=== PATIENT | female | born 1995 | race African-American/Black ===

== ENCOUNTER → 2017-01-13 | Outpatient (CLI) | payer OTHER ==
--- NOTE | 2017-01-13 13:00 | EKG REPORT ---
SEVERITY:- NORMAL ECG - SINUS RHYTHM : Confirmed by: Pooja Sunshine 13-Jan-2017 12:59:39
--- NOTE | 2017-01-16 14:36 | [facility] ---
[facility] NAME: FLAVIO BORRERO [facility] REFERENCE #: [id number] : 1995 DATE OF VISIT: 01/13/2017 PRIMARY CARE PHYSICIAN: [facility] CHIEF COMPLAINT: Followup bicuspid aortic valve and ascending aorta enlargement. HISTORY: I saw this patient in 06/2014 for lightheadedness and palpitations. On my exam, I found an aortic ejection click and her echo revealed that she did have a bicuspid aortic valve and a large ascending aorta but not severe, and her valve function was essentially normal. She is here to follow up on this. She had a thirty day EKG recorder but actually she stopped having her palpitations, and at this visit she says she really does not have cardiac symptoms. Sometimes if she has a test or a deadline, she will feel tight in the chest or be short of breath but she is sure that is anxiety and she does not have sustained tachycardia or palpitations. Her tolerance is normal. She has rare headaches with stress. MEDICATIONS: None. ALLERGIES: Amoxicillin and Keflex. SOCIAL HISTORY: Is at [facility] in [place]. PAST HOSPITALIZATION: None. SURGERY: None. SYSTEMS REVIEWED: Negative for abnormal weight change, vision problems, or hearing problems, wheezing or coughing, GI symptoms, urinary complaints, musculoskeletal problems. She has normal menses. FAMILY HISTORY: Mother has thyroid dysfunction, and one time had anemia. There are no individuals known with aortic valve problems. PHYSICAL EXAM: Weight 156 pounds, height 64 inches. Blood pressure 110/62, heart rate 73. General exam: This is a polite, well-appearing young woman. I examined her with her mother present. Dentition appears excellent. Thyroid not enlarged or nodular. Lungs clear bilateral. Precordial activity normal. No suprasternal thrill. Cardiac auscultation reveals an aortic ejection click at the apex but no abnormal murmurs. Second heart sound is normal. Abdomen without hepatomegaly or splenomegaly, mass, or bruit. Gait and coordination normal. Femoral pulse is brisk. Echocardiogram is unchanged from the echo of two and a half years ago. She has a mild enlargement of the ascending aorta, and a bicuspid aortic valve with normal valve function. IMPRESSION: ASYMPTOMATIC BICUSPID AORTIC VALVE WITH TYPICAL ASCENDING AORTIC ENLARGEMENT WHICH IS MILD AND NOT REQUIRING ANY SPECIAL RESTRICTIONS ON HER IN TERMS OF SUPPORT, ETC. THE AORTIC VALVE FUNCTION IS NORMAL WITHOUT STENOSIS OR REGURGITATION. IT WOULD BE REASONABLE TO DO AN ECHO ON HER IN TWO YEARS BUT SHE SHOULD HAVE ZERO PROBLEMS FROM THIS THROUGH HER YOUNG ADULT YEARS AND PROBABLY UNTIL SHE IS QUITE OLD. IT WOULD BE PRUDENT TO CHECK THE AORTIC SIZE HOWEVER IN TWO YEARS BUT A THREE CENTIMETER ASCENDING AORTA IS A RATHER MILD ENLARGEMENT FOR HER AGE AND HER BODY SIZE, AND COMPLETELY CONSISTENT WITH THE DIAGNOSIS OF BICUSPID VALVE. BALA GASPAR MD [id number] PHY#: [id number] ID: [id number] JOB#: [id number] ACCT: [id number] cc:BALA GASPAR MD [facility]ENTERWil
--- NOTE | 2017-01-16 15:07 | NONINVASIVE CARDIOLOGY REPORT ---
ECHOCARDIOGRAPHY REPORT PATIENT NAME: FLAVIO BORRERO ROOM#: DATE OF SERVICE: 01/13/2017 : 1995 PRIMARY CARE: [facility] REFERENCE #: [id number] ORDER #: [id number] INDICATION: Two and a half year followup of bicuspid aortic valve. REPORT This echocardiogram study shows a vertically bicuspid aortic valve which is unicommissural as seen on the short axis view. There is typical but mild enlargement of the ascending aorta with a 3-cm ascending diameter. The aortic sinuses of Valsalva are not abnormally dilated in size. The aortic valve is competent by caudal mapping and has no abnormal stenosis. The aortic arch is normal. Left ventricular size, wall thickness, septal thickness and ventricular performance normal with ejection fraction 69%. Right ventricle appears normal size and performance. Normal morphologies of the mitral, tricuspid and pulmonary veins. No abnormal pericardial fluid. Normal origins of the coronary arteries. Intact atrial septum. Color mapping shows normal tricuspid and normal pulmonary valve regurgitations and no aortic regurgitation. Doppler velocities are normal through the four valves, including aortic and the descending aorta. CARDIAC DIMENSIONS: LVED 4.9 cm, LVES 3 cm, LV wall 0.9 cm, septum 0.9 cm, aortic root 2.9 cm, ascending aorta 3 cm, right ventricle 2.5 cm, left atrium 2.7 cm. DOPPLER VELOCITIES: Aorta 1.4 m/sec, pulmonary 0.9 m/sec, tricuspid 0.5 m/sec, mitral 1 m/sec, tricuspid regurgitation 2.1 m/sec, descending aorta 1.3 m/sec, ascending aorta 1.3 m/sec. FINAL IMPRESSION: BICUSPID AORTIC VALVE WITH NORMAL VALVE FUNCTION AND MILD ENLARGEMENT OF ASCENDING AORTA. INTERPRETING PHYSICIAN: BALA GASPAR MD /: [id number] TT: [id number] ID: [id number] /: [id number] TD: [id number] JOB: [id number] cc:BALA GASPAR MD [facility], MAbe Mercado
== END ==
LOC: PC 09:41
PROVIDERS: ATTEND Pediatrics Pediatric Cardiology
DX: Q23.0 Congenital stenosis of aortic valve (principal)
CPT/HCPCS: 93005; 93010; 93304; 93321; 93325